=== PATIENT | male | born 1960 | race Caucasian/White ===

== ENCOUNTER 2017-04-28 17:42 | Inpatient (IN) | payer BC, OTHER ==
[2017-04-28] MEDS: ONDANSETRON 4MG/2ML VIAL (J2405) IV (18:14)
[2017-04-28] MEDS: MORPHINE 4 MG/ML 1ML VIAL (J2270) IV (18:15)
[2017-04-28 19:18] LABS: INR 1.06; PROTHROMBIN TIME 13.9 SECONDS (12.4-14.5)
[2017-04-28] MEDS ORDERED: ONDANSETRON 4MG/2ML VIAL (J2405) IV (20:00)
[2017-04-28] MEDS ORDERED: GLUCAGON FOR INJ 1 MG VIAL (J1610) SC (20:00)
[2017-04-28] MEDS ORDERED: GLUCOSE 4 GM CHEW TABLET PO (20:00)
[2017-04-28] MEDS ORDERED: BISACODYL 10 MG SUPP PR (20:00)
[2017-04-28] MEDS ORDERED: DEXTROSE 50% 50 ML SYRINGE IV (20:00)
[2017-04-28] MEDS: HumaLOG INSULIN (NovoLOG) PER UNIT SC (21:00)
[2017-04-28 21:52] LABS: ANION GAP 7 MEQ/L (8-16); BLOOD UREA NITROGEN 23 MG/DL (7-18); CALCIUM LEVEL 8.4 MG/DL (8.5-10.1); CARBON DIOXIDE LEVEL 27 MEQ/L (21-32); CHLORIDE LEVEL 107 MEQ/L (98-107); CREATININE FOR GFR 1.23 MG/DL (0.70-1.30); GLOMERULAR FILTRATION RATE > 60.0 (>56); GLUCOSE, FASTING 114 MG/DL (70-100); POTASSIUM SERUM 4.2 MEQ/L (3.5-5.1); SODIUM LEVEL 141 MEQ/L (136-145)
[2017-04-28 21:57] LABS: HEMATOCRIT 35.6 % (42.0-52.0); HEMOGLOBIN 11.4 g/dl (14.0-18.0); MEAN CORPUSCULAR VOLUME 87.5 fl (80.0-96.0); PLATELET COUNT, AUTOMATED 138 10^3/uL (150-450); RED BLOOD COUNT 4.07 10^6/uL (4.30-6.10); RED CELL DISTRIBUTION WIDTH 14.9 % (11.5-14.5); WHITE BLOOD COUNT 4.3 10^3/uL (4.0-10.0)
[2017-04-28] MEDS: NS 1,000 ML IV (22:15)
[2017-04-28] MEDS: ACETAMINOPHEN TAB 650MG DOSE (2X325MG) PO (22:36)
[2017-04-29 06:07] LABS: HEMATOCRIT 32.3 % (42.0-52.0); HEMOGLOBIN 10.3 g/dl (14.0-18.0); MEAN CORPUSCULAR HEMOGLOBIN 27.8 pg (27.0-33.0); MEAN CORPUSCULAR HGB CONC 31.9 g/dl (32.0-36.5); MEAN CORPUSCULAR VOLUME 87.3 fl (80.0-96.0); PLATELET COUNT, AUTOMATED 112 10^3/uL (150-450); RED CELL DISTRIBUTION WIDTH 15.2 % (11.5-14.5); WHITE BLOOD COUNT 2.9 10^3/uL (4.0-10.0)
[2017-04-29 06:30] LABS: ANION GAP 5 MEQ/L (8-16); BLOOD UREA NITROGEN 26 MG/DL (7-18); CALCIUM LEVEL 8.2 MG/DL (8.5-10.1); CARBON DIOXIDE LEVEL 29 MEQ/L (21-32); CHLORIDE LEVEL 106 MEQ/L (98-107); CREATININE FOR GFR 1.11 MG/DL (0.70-1.30); GLOMERULAR FILTRATION RATE > 60.0 (>56); GLUCOSE, FASTING 119 MG/DL (70-100); POTASSIUM SERUM 4.4 MEQ/L (3.5-5.1); SODIUM LEVEL 140 MEQ/L (136-145)
[2017-04-29] MEDS: HumaLOG INSULIN (NovoLOG) PER UNIT SC ×4 (07:30→20:34)
[2017-04-29] MEDS: CitaloPRAM (CeleXA) 20 MG TAB PO (08:37)
[2017-04-29] MEDS: OMEPRAZOLE 20 MG CAP PO (08:38)
[2017-04-29] MEDS: METOPROLOL SUCC (TopROL XL) 100MG *XL* TAB PO (08:38)
[2017-04-29] MEDS: PREGABALIN 75 MG CAP(LYRICA) PO (08:38)
[2017-04-29] MEDS: NS 1,000 ML IV (11:16)
[2017-04-29] MEDS: ceFAZolin 1GM INJ (J0690 PER 500MG) As Ordered (13:23)
[2017-04-29] MEDS ORDERED: MIDAZOLAM INJ 2 MG/2 ML VIAL (J2250) As Ordered (14:14)
[2017-04-29] MEDS ORDERED: fentaNYL 100 MCG/2 ML INJECTION (J3010) As Ordered (14:14)
[2017-04-29] MEDS ORDERED: PROPOFOL 200 MG/20 ML VIAL As Ordered ×4 (14:14→15:11)
[2017-04-29] MEDS: ceFAZolin 2 GM/D5W 50 ML IV BAG (J0690 PER 500MG) As Ordered (14:17)
[2017-04-29] MEDS ORDERED: ePHEDrine SULFATE 25 MG/5 ML(5MG/ML) SYRINGE As Ordered (14:27)
[2017-04-29] MEDS: LR 1,000 ML IV ×2 (16:15→18:34)
[2017-04-29] MEDS ORDERED: fentaNYL 100 MCG/2 ML INJECTION (J3010) IV (16:15)
[2017-04-29] MEDS ORDERED: MORPHINE 1MG/ML IN 0.9% NACL 100ML IV BAG As Ordered (16:17)
[2017-04-29] MEDS: MORPHINE 1MG/ML IN 0.9% NACL 100ML IV BAG IV (16:30)
[2017-04-29] MEDS ORDERED: NALBUPHINE HCL 10 MG/ML AMP (J2300) IV (16:45)
[2017-04-29] MEDS ORDERED: FLEET ENEMA PR (16:45)
[2017-04-29] MEDS ORDERED: diphenhydrAMINE INJ 50MG/ML VIAL (J1200) IV (16:45)
[2017-04-29] MEDS ORDERED: ONDANSETRON 4MG/2ML VIAL (J2405) IV ×2 (16:45)
[2017-04-29] MEDS ORDERED: EPIDURAL/PCA KEYS XX (16:45)
[2017-04-29] MEDS ORDERED: NALOXONE INJ 0.4 MG/1 ML VIAL (J2310) IV (16:45)
[2017-04-29] MEDS ORDERED: DEXTROSE 50% 50 ML SYRINGE IV (17:00)
[2017-04-29] MEDS ORDERED: GLUCOSE 4 GM CHEW TABLET PO (17:00)
[2017-04-29] MEDS ORDERED: GLUCAGON FOR INJ 1 MG VIAL (J1610) SC (17:00)
[2017-04-29 18:22] LABS: BEDSIDE GLUCOSE 133 MG/DL (70-105)
[2017-04-29 20:34] LABS: BEDSIDE GLUCOSE 139 MG/DL (70-105)
[2017-04-29] MEDS: WARFARIN SOD 5 MG TAB PO (21:12)
[2017-04-29] MEDS: ACETAMINOPHEN TAB 650MG DOSE (2X325MG) PO (22:02)
[2017-04-30 05:51] LABS: HEMATOCRIT 28.2 % (42.0-52.0); MEAN CORPUSCULAR HEMOGLOBIN 27.3 pg (27.0-33.0); MEAN CORPUSCULAR HGB CONC 31.9 g/dl (32.0-36.5); MEAN CORPUSCULAR VOLUME 85.5 fl (80.0-96.0); PLATELET COUNT, AUTOMATED 113 10^3/uL (150-450); RED CELL DISTRIBUTION WIDTH 15.3 % (11.5-14.5); WHITE BLOOD COUNT 4.5 10^3/uL (4.0-10.0)
[2017-04-30] MEDS: LR 1,000 ML IV (06:05)
[2017-04-30 06:15] LABS: ANION GAP 8 MEQ/L (8-16); BLOOD UREA NITROGEN 24 MG/DL (7-18); CALCIUM LEVEL 7.6 MG/DL (8.5-10.1); CARBON DIOXIDE LEVEL 25 MEQ/L (21-32); CHLORIDE LEVEL 103 MEQ/L (98-107); GLOMERULAR FILTRATION RATE > 60.0 (>56); GLUCOSE, FASTING 126 MG/DL (70-100); MAGNESIUM LEVEL 1.7 MG/DL (1.8-2.4); POTASSIUM SERUM 4.2 MEQ/L (3.5-5.1); SODIUM LEVEL 136 MEQ/L (136-145)
[2017-04-30] MEDS ORDERED: ONDANSETRON 4 MG TAB (S0181) PO (06:45)
[2017-04-30 08:07] LABS: BEDSIDE GLUCOSE 162 MG/DL (70-105)
[2017-04-30] MEDS: HumaLOG INSULIN (NovoLOG) PER UNIT SC ×4 (08:31→20:41)
[2017-04-30] MEDS: MAGNESIUM OXIDE 400 MG TAB (MAG-OX) PO (08:31)
[2017-04-30] MEDS: CitaloPRAM (CeleXA) 20 MG TAB PO (08:32)
[2017-04-30] MEDS: METOPROLOL SUCC (TopROL XL) 100MG *XL* TAB PO (08:32)
[2017-04-30] MEDS: PREGABALIN 75 MG CAP(LYRICA) PO (08:32)
[2017-04-30] MEDS: SENOKOT S TAB PO ×2 (08:32→20:39)
[2017-04-30] MEDS: MOM 30ML SUSPENSION UDC PO (08:32)
[2017-04-30] MEDS: MIRALAX *UNIT DOSE* 17GM PACKET PO (08:33)
[2017-04-30] MEDS: PERCOCET 5MG/325MG TAB PO ×2 (08:33→13:49)
[2017-04-30 11:21] LABS: BEDSIDE GLUCOSE 140 MG/DL (70-105)
[2017-04-30 16:47] LABS: BEDSIDE GLUCOSE 129 MG/DL (70-105)
[2017-04-30] MEDS: WARFARIN SOD 5 MG TAB PO (16:51)
[2017-05-01] MEDS: PERCOCET 5MG/325MG TAB PO ×4 (00:11→19:49)
[2017-05-01 06:34] LABS: HEMATOCRIT 25.8 % (42.0-52.0); HEMOGLOBIN 8.5 g/dl (14.0-18.0); MEAN CORPUSCULAR HEMOGLOBIN 28.2 pg (27.0-33.0); MEAN CORPUSCULAR HGB CONC 32.9 g/dl (32.0-36.5); MEAN CORPUSCULAR VOLUME 85.7 fl (80.0-96.0); PLATELET COUNT, AUTOMATED 102 10^3/uL (150-450); RED BLOOD COUNT 3.01 10^6/uL (4.30-6.10); RED CELL DISTRIBUTION WIDTH 15.3 % (11.5-14.5)
[2017-05-01 06:37] LABS: INR 1.21; PROTHROMBIN TIME 15.6 SECONDS (12.4-14.5)
[2017-05-01 06:43] LABS: ANION GAP 8 MEQ/L (8-16); BLOOD UREA NITROGEN 22 MG/DL (7-18); CALCIUM LEVEL 8.5 MG/DL (8.5-10.1); CARBON DIOXIDE LEVEL 27 MEQ/L (21-32); CHLORIDE LEVEL 101 MEQ/L (98-107); CREATININE FOR GFR 0.93 MG/DL (0.70-1.30); GLOMERULAR FILTRATION RATE > 60.0 (>56); GLUCOSE, FASTING 110 MG/DL (70-100); MAGNESIUM LEVEL 1.9 MG/DL (1.8-2.4); SODIUM LEVEL 136 MEQ/L (136-145)
[2017-05-01] MEDS: MOM 30ML SUSPENSION UDC PO (08:35)
[2017-05-01] MEDS: SENOKOT S TAB PO ×2 (08:35→19:48)
[2017-05-01] MEDS: MIRALAX *UNIT DOSE* 17GM PACKET PO (08:35)
[2017-05-01] MEDS: PREGABALIN 75 MG CAP(LYRICA) PO (08:36)
[2017-05-01] MEDS: CitaloPRAM (CeleXA) 20 MG TAB PO (08:36)
[2017-05-01] MEDS: METOPROLOL SUCC (TopROL XL) 100MG *XL* TAB PO (08:37)
[2017-05-01] MEDS: HumaLOG INSULIN (NovoLOG) PER UNIT SC ×4 (08:40→20:01)
[2017-05-01] MEDS: WARFARIN SOD 7.5 MG TAB PO (17:37)
[2017-05-01] MEDS: BISACODYL 10 MG SUPP PR (19:49)
[2017-05-02] MEDS: PERCOCET 5MG/325MG TAB PO ×2 (04:39→12:21)
[2017-05-02 06:22] LABS: HEMATOCRIT 25.6 % (42.0-52.0); HEMOGLOBIN 8.4 g/dl (14.0-18.0); MEAN CORPUSCULAR HEMOGLOBIN 28.1 pg (27.0-33.0); MEAN CORPUSCULAR HGB CONC 32.8 g/dl (32.0-36.5); MEAN CORPUSCULAR VOLUME 85.6 fl (80.0-96.0); PLATELET COUNT, AUTOMATED 118 10^3/uL (150-450); RED BLOOD COUNT 2.99 10^6/uL (4.30-6.10); RED CELL DISTRIBUTION WIDTH 15.2 % (11.5-14.5); WHITE BLOOD COUNT 2.7 10^3/uL (4.0-10.0)
[2017-05-02 06:30] LABS: INR 1.16
[2017-05-02 06:46] LABS: ANION GAP 7 MEQ/L (8-16); BLOOD UREA NITROGEN 23 MG/DL (7-18); CALCIUM LEVEL 8.2 MG/DL (8.5-10.1); CARBON DIOXIDE LEVEL 28 MEQ/L (21-32); CHLORIDE LEVEL 103 MEQ/L (98-107); GLOMERULAR FILTRATION RATE > 60.0 (>56); GLUCOSE, FASTING 124 MG/DL (70-100); MAGNESIUM LEVEL 2.3 MG/DL (1.8-2.4); POTASSIUM SERUM 4.3 MEQ/L (3.5-5.1); SODIUM LEVEL 138 MEQ/L (136-145)
[2017-05-02] MEDS: HumaLOG INSULIN (NovoLOG) PER UNIT SC ×2 (08:00→12:16)
[2017-05-02] MEDS: ENOXAPARIN 40 MG/0.4 ML SYRINGE (J1650) SC (08:00)
[2017-05-02] MEDS: MIRALAX *UNIT DOSE* 17GM PACKET PO (09:44)
[2017-05-02] MEDS: MOM 30ML SUSPENSION UDC PO (09:44)
[2017-05-02] MEDS: METOPROLOL SUCC (TopROL XL) 100MG *XL* TAB PO (09:45)
[2017-05-02] MEDS: PREGABALIN 75 MG CAP(LYRICA) PO (09:45)
[2017-05-02] MEDS: SENOKOT S TAB PO (09:45)
[2017-05-02] MEDS: CitaloPRAM (CeleXA) 20 MG TAB PO (09:45)
[2017-05-02] MEDS ORDERED: WARFARIN SOD 7.5 MG TAB PO (17:00)
[2017-05-03 12:04] LABS: BEDSIDE GLUCOSE 126 MG/DL (70-105)
[2017-05-03 12:05] LABS: BEDSIDE GLUCOSE 148 MG/DL (70-105)
[2017-05-03 12:05] LABS: BEDSIDE GLUCOSE 156 MG/DL (70-105)
[2017-05-03 12:05] LABS: BEDSIDE GLUCOSE 99 MG/DL (70-105)
[2017-05-03 12:05] LABS: BEDSIDE GLUCOSE 136 MG/DL (70-105)
[2017-05-03 12:05] LABS: BEDSIDE GLUCOSE 200 MG/DL (70-105)
[2017-05-03 12:05] LABS: BEDSIDE GLUCOSE 159 MG/DL (70-105)
== END 2017-05-02 13:05 | disposition home health service (06) | DRG 309 ==
LOC: M MSPAV 04-29 17:29 → M MS5PR 04-30 17:03 → M ED 17:42 → M ED INP 19:46 → M MS5PR 21:46
PROC: 0QS906Z Reposition Left Femoral Shaft with Intramedullary Internal Fixation Device, Open Approach (ICD-10-PCS; principal; 2017-04-29 08:43)
DX: M97.12XA Periprosthetic fracture around internal prosthetic left knee joint, initial encounter (principal); G62.9 Polyneuropathy, unspecified; I10 Essential (primary) hypertension; E11.9 Type 2 diabetes mellitus without complications; Z79.82 Long term (current) use of aspirin; Z79.899 Other long term (current) drug therapy; K21.9 Gastro-esophageal reflux disease without esophagitis; F32.9 Major depressive disorder, single episode, unspecified; R50.9 Fever, unspecified; R00.0 Tachycardia, unspecified

== ENCOUNTER → 2019-08-29 | Outpatient (CLI) | payer BC ==
[~2019-08-29] MED LIST: ACET65TA OR; ASPI81TA86 PO; CITA20TA6 PO; COUM1TAB18 OR; COUM2.5T17 PO; INVO300T PO; LYRI75CA PO; METF500T13 PO; METO1TAB33 PO; OMEPRAZOLE PO; PERC5TAB12 PO; PERC5TAB8 OR; PRIL40CA OR; VITA-113 PO; ibuprofen PO; naproxen PO
--- NOTE | 2019-08-29 23:24 | REP ---
BILATERAL EXAM: REASON: Atherosclerotic disease. RIGHT: Right side ankle-brachial index noncompressible, unobtainable. ARTERY PEAK SYSTOLIC VELOCITY PHASICITY [employer] 58.7 cm/s Triphasic Profunda 34.1 cm/s Triphasic SFA proximal 65.3 cm/s Triphasic SFA mid 49.6 cm/s Triphasic SFA distal 47.9 cm/s Triphasic Popliteal 38.5 cm/s Triphasic EBEN proximal 57.0 cm/s Triphasic Tibioperoneal trunk 45.7 cm/s Triphasic CREAMERY WORKER proximal 75.2 cm/s Triphasic CREAMERY WORKER distal 75.2 cm/s Triphasic EBEN distal 74.6 cm/s Triphasic LEFT: Ankle-brachial index 1.6. ARTERY PEAK SYSTOLIC VELOCITY PHASICITY [employer] 50.2 cm/s Triphasic Profunda 17.3 cm/s Triphasic SFA proximal 57.1 cm/s Triphasic SFA mid 48.5 cm/s Triphasic SFA distal 43.1 cm/s Triphasic Popliteal 40.9 cm/s Triphasic EBEN proximal 40.9 cm/s Triphasic Tibioperoneal trunk 44.2 cm/s Triphasic CREAMERY WORKER proximal 65.5 cm/s Monophasic CREAMERY WORKER distal 121.3 cm/s Monophasic EBEN distal 32.7 cm/s Monophasic On the right, mild to moderate plaque was seen without evidence of a stenosis from the [employer] to the ankle. On the left, mild to moderate plaque was also seen. Electronically Signed by Syd Aldridge DO 08/30/2019 12:37 P
== END ==
LOC: M RAD 13:00
PROVIDERS: ATTEND Physician Assistant
DX: I70.203 Unspecified atherosclerosis of native arteries of extremities, bilateral legs (principal)

== ENCOUNTER → 2019-09-05 | Outpatient (CLI) | payer BC ==
[2019-09-05 15:31] LABS: BLOOD UREA NITROGEN 19 MG/DL (7-18); CALCIUM LEVEL 8.8 MG/DL (8.8-10.2); CARBON DIOXIDE LEVEL 27 MEQ/L (21-32); CHLORIDE LEVEL 107 MEQ/L (98-107); CREATININE FOR GFR 1.08 MG/DL (0.70-1.30); GLOMERULAR FILTRATION RATE > 60.0 (>49); GLUCOSE, FASTING 104 MG/DL (70-100); POTASSIUM SERUM 4.5 MEQ/L (3.5-5.1); SODIUM LEVEL 140 MEQ/L (136-145)
[2019-09-05 15:33] LABS: HEMATOCRIT 42.5 % (42.0-52.0); HEMOGLOBIN 13.5 g/dl (13.5-17.5); MEAN CORPUSCULAR HEMOGLOBIN 29.5 pg (27.0-33.0); MEAN CORPUSCULAR HGB CONC 31.8 g/dl (32.0-36.5); MEAN CORPUSCULAR VOLUME 92.8 fl (80.0-96.0); PLATELET COUNT, AUTOMATED 172 10^3/uL (150-450); RED BLOOD COUNT 4.58 10^6/uL (4.30-6.10); WHITE BLOOD COUNT 4.7 10^3/uL (4.0-10.0)
== END ==
LOC: M LAB 12:13
PROVIDERS: ATTEND Physician Assistant
DX: I70.203 Unspecified atherosclerosis of native arteries of extremities, bilateral legs (principal); I87.2 Venous insufficiency (chronic) (peripheral); I70.245 Atherosclerosis of native arteries of left leg with ulceration of other part of foot

== ENCOUNTER → 2020-02-05 | Outpatient (REF) | payer OTHER ==
[2020-02-05 12:41] LABS: BLOOD UREA NITROGEN 21 MG/DL (7-18); CALCIUM LEVEL 8.8 MG/DL (8.8-10.2); CARBON DIOXIDE LEVEL 33 MEQ/L (21-32); CHLORIDE LEVEL 103 MEQ/L (98-107); CREATININE FOR GFR 1.14 MG/DL (0.70-1.30); GLOMERULAR FILTRATION RATE > 60.0 (>49); GLUCOSE, FASTING 123 MG/DL (70-100); POTASSIUM SERUM 4.2 MEQ/L (3.5-5.1); SODIUM LEVEL 139 MEQ/L (136-145)
[2020-02-05 13:03] LABS: HEMOGLOBIN A1c 6.4 %
== END ==
LOC: M SFHCCLAY 08:25
PROVIDERS: ATTEND Family Medicine
DX: E11.9 Type 2 diabetes mellitus without complications (principal)

== ENCOUNTER → 2020-04-16 | Outpatient (CLI) | payer OTHER ==
--- NOTE | 2020-04-16 15:32 | REP ---
INDICATION: ACUTE PAIN OF LEFT SHOULDER COMPARISON: None. TECHNIQUE: Internal rotation, external rotation, and Y view. FINDINGS: Relatively generalized age-related changes are appreciated including subtle arthritic change at the acromioclavicular joint. The subacromial space is normal. The glenohumeral joint appears normal. No periarticular loose bodies or calcifications identified. No obvious acute fracture or dislocation. IMPRESSION: Generalized age-related changes. No acute fracture or dislocation appreciated. <Electronically signed by Kp David > 04/16/20 152
== END ==
LOC: M CLY 15:12
PROVIDERS: ATTEND Family Medicine
DX: M25.512 Pain in left shoulder (principal)
CPT/HCPCS: 73030; G0463

== ENCOUNTER → 2020-11-04 | Outpatient (CLI) | payer OTHER | LOC: M LABSMTC 11:04 | PROVIDERS: ATTEND Pediatrics | DX: Z20.828 Contact with and (suspected) exposure to other viral communicable diseases (principal); Z11.59 Encounter for screening for other viral diseases | CPT/HCPCS: C9803; U0003 ==

== ENCOUNTER → 2021-01-04 | Outpatient (CLI) | payer OTHER ==
[~2021-01-04] MED LIST changes: +AMIO200T3; +ATOR40TA75; +CITA40TA4; +D31000TA2 PO; +ELIQ5TAB; +FURO40TA2 PO; +OMEP-221; +SPIR-10 PO
== END ==
LOC: M LABSMTC 09:22
PROVIDERS: ATTEND Anesthesiology
DX: Z01.812 Encounter for preprocedural laboratory examination (principal); Z20.822 Contact with and (suspected) exposure to COVID-19

== ENCOUNTER 2021-01-10 09:13 | Outpatient (CLI) | payer OTHER ==
[~2021-01-10] VITALS: Ht 188 cm; Wt 112.7 kg
[~2021-01-10 09:13] MED LIST changes: +ALBUTEROL 90 MCG/ACT 8GM HFA INHALER INH PRN; +ALBUTEROL SULFATE 2.5 MG/0.5 ML INH NEB SOLN INH PRN; -AMIO200T3; +AMIO200T49; -CITA40TA4; +CITA40TA7; +EPINEPHrine INJ 1 MG/ML 1ML AMP IM PRN; +NS 1,000 ML IV SCH; -OMEP-221; +OMEP40CA5; +diphenhydrAMINE 50MG/ML VIAL (J1200) IV PRN; +methylPREDNISolone 125MG 2ML VIAL IV PRN
[2021-01-10 09:46] VITALS: BP 132/79
[2021-01-10] MEDS ORDERED: CASIRIVIMAB (REGN10933) 600 MG, IMDEVIMAB (REGN10987) 600 MG in NS 250 ML IV ONE (10:00)
[2021-01-10 10:16] VITALS: BP 104/64
[2021-01-10 10:46] VITALS: BP 112/70
[2021-01-10 11:46] VITALS: BP 126/73
== END 2021-01-10 11:46 | disposition home or self-care (01) ==
LOC: M OPCLI4PR 09:13
PROVIDERS: ATTEND Family Medicine
DX: U07.1 COVID-19 (principal)

== ENCOUNTER → 2021-01-15 | Outpatient (CLI) | payer OTHER ==
[~2021-01-15] MED LIST changes: -ALBUTEROL 90 MCG/ACT 8GM HFA INHALER INH PRN; -ALBUTEROL SULFATE 2.5 MG/0.5 ML INH NEB SOLN INH PRN; -EPINEPHrine INJ 1 MG/ML 1ML AMP IM PRN; -NS 1,000 ML IV SCH; -diphenhydrAMINE 50MG/ML VIAL (J1200) IV PRN; -methylPREDNISolone 125MG 2ML VIAL IV PRN
== END ==
LOC: M LABSMTC 11:08
PROVIDERS: ATTEND Anesthesiology
DX: Z01.812 Encounter for preprocedural laboratory examination (principal); Z20.822 Contact with and (suspected) exposure to COVID-19

== ENCOUNTER → 2021-01-23 | Outpatient (CLI) | payer OTHER ==
[~2021-01-23] MED LIST changes: +AMIO200T3; -AMIO200T49; +CITA40TA4; -CITA40TA7; +OMEP-221; -OMEP40CA5
--- NOTE | 2021-01-27 15:25 | SLEEPCENT ---
DATE: 01/23/2021 ORDERED BY: ALEXX Jin Nocturnal polysomnography was performed for evaluation of sleep physiology in this patient with a history of excessive somnolence and nonrestorative sleep. Seven hours and 7 minutes of data were reviewed. There were 336.5 minutes of sleep identified. Sleep latency was mildly prolonged at 19.5 minutes. REM latency was more so prolonged at 319 minutes. Sleep architecture showed fragmentation and poor progression. Overall sleep efficiency was 79.5%. The electrocardiogram showed a sinus rhythm with an average heart rate of 62 beats per minute. EEG showed normal waveforms for wake and sleep. There were 521 respiratory events identified of 10 seconds in duration or greater for an apnea-hypopnea index of 92.9. The events were obstructive, not exclusive to sleep stage nor position. Arousals from respiratory events occurred 23.7 times per hour, and oxygen desaturations were seen into the low 80s. There was significant activity in the limb leads but limb movement arousal index was only 0.4. IMPRESSIONS: Obstructive sleep apnea syndrome, severe (G47.33). Apnea-hypopnea index 92.9. RECOMMENDATION: The patient should be encouraged to return to [facility] at their earliest convenience for pressure therapy. In the interim, alcohol and sedative avoidance should be practiced and caution exercised during the operation of motor vehicles. cc: JOLLY DIXON MD
== END ==
LOC: M SLEEP 20:00
PROVIDERS: ATTEND Nurse Practitioner Family
DX: G47.33 Obstructive sleep apnea (adult) (pediatric) (principal)

== ENCOUNTER → 2021-02-14 | Outpatient (CLI) | payer OTHER ==
--- NOTE | 2021-02-17 20:56 | SLEEPCENT ---
DATE: 02/14/2021 ORDERED BY: ALEXX Jin Nocturnal polysomnography was performed for the titration of pressure therapy in this patient with severe obstructive sleep apnea syndrome, apnea-hypopnea index of 92.9. Seven hours and 55 minutes of data were reviewed. There were 364 minutes of sleep identified. Sleep latency was normal at 10.5 minutes. REM sleep was delayed at 231.5 minutes. Sleep architecture improved on optimal pressure therapy and there were two REM cycles noted. Overall sleep efficiency was 79%. The electrocardiogram showed a sinus rhythm with an average heart rate of 60 beats per minute. EEG showed normal waveforms for wake and sleep. Respiratory events were fully palliated with CPAP at a pressure of 15. There was persistence of limb activity in the EMG leads. Limb movement arousal index was only 7.6. IMPRESSIONS: Obstructive sleep apnea syndrome (G47.33). RECOMMENDATION: Nightly use of pressure therapy 15 cm of water. cc: JOLLY DIXON MD
== END ==
LOC: M SLEEP 20:00
PROVIDERS: ATTEND Physician Assistant
DX: G47.33 Obstructive sleep apnea (adult) (pediatric) (principal)

== ENCOUNTER → 2021-06-23 | Outpatient (REF) | payer OTHER ==
[~2021-06-23] MED LIST changes: -AMIO200T3; +AMIO200T49; -CITA40TA4; +CITA40TA7; -D31000TA2 PO; -OMEP-221; +OMEP40CA5; +VITA100093 PO
[2021-06-23 12:12] LABS: BASO % 0.4 % (0.0-1.0); EOS # 0.1 10^3/uL (0.0-0.5); EOS % 1.9 % (0.0-3.0); HEMATOCRIT 42.8 % (42.0-52.0); HEMOGLOBIN 13.8 g/dl (13.5-17.5); LYMPH # 0.8 10^3/uL (1.5-5.0); LYMPH % 13.2 % (24.0-44.0); MEAN CORPUSCULAR HEMOGLOBIN 32.3 pg (27.0-33.0); MEAN CORPUSCULAR HGB CONC 32.2 g/dl (32.0-36.5); MEAN CORPUSCULAR VOLUME 100.2 fl (80.0-96.0); MONO # 0.6 10^3/uL (0.0-0.8); MONO % 10.8 % (2.0-8.0); NEUTROPHILS # 4.2 10^3/uL (1.5-8.5); NEUTROPHILS % 73.3 % (36.0-66.0); PLATELET COUNT, AUTOMATED 189 10^3/uL (150-450); RED BLOOD COUNT 4.27 10^6/uL (4.30-6.10); WHITE BLOOD COUNT 5.7 10^3/uL (4.0-10.0)
[2021-06-23 12:40] LABS: ALBUMIN 3.6 GM/DL (3.2-5.2); ALT/SGPT 56 U/L (12-78); BILIRUBIN,TOTAL 0.8 MG/DL (0.2-1.0); BLOOD UREA NITROGEN 23 MG/DL (7-18); CALCIUM LEVEL 8.8 MG/DL (8.8-10.2); CARBON DIOXIDE LEVEL 28 MEQ/L (21-32); CHLORIDE LEVEL 107 MEQ/L (98-107); CREATININE FOR GFR 1.26 MG/DL (0.70-1.30); FREE T4 1.23 NG/DL (0.76-1.46); GLOMERULAR FILTRATION RATE > 60.0 (>49); GLUCOSE, FASTING 136 MG/DL (70-100); POTASSIUM SERUM 4.4 MEQ/L (3.5-5.1); SODIUM LEVEL 139 MEQ/L (136-145); TOTAL PROTEIN 7.1 GM/DL (6.4-8.2)
[2021-06-23 12:43] LABS: CREATININE, URINE 75.2 MG/DL; MALB URINE SIEMENS < 5.0 MG/L; MAU/CREAT RATIO 6.6 MCG/MG (0.0-30.0)
[2021-06-23 13:58] LABS: HEMOGLOBIN A1c 6.4 %
== END ==
LOC: M SFHCCLAY 08:31
PROVIDERS: ATTEND Nurse Practitioner Family
DX: E11.40 Type 2 diabetes mellitus with diabetic neuropathy, unspecified (principal); I83.93 Asymptomatic varicose veins of bilateral lower extremities; I11.0 Hypertensive heart disease with heart failure; Z23 Encounter for immunization; E78.5 Hyperlipidemia, unspecified; I48.91 Unspecified atrial fibrillation; E11.22 Type 2 diabetes mellitus with diabetic chronic kidney disease; N18.30 Chronic kidney disease, stage 3 unspecified
CPT/HCPCS: 73630; 80053; 82043; 83036; 84439; 84443; 85025; G0103

== ENCOUNTER → 2021-06-23 | Outpatient (CLI) | payer OTHER | LOC: M CLY 08:49 | PROVIDERS: ATTEND Nurse Practitioner Family | DX: M79.672 Pain in left foot (principal) ==

== ENCOUNTER → 2022-01-09 | Outpatient (CLI) | payer OTHER | LOC: M SLEEP 20:00 | PROVIDERS: ATTEND Nurse Practitioner Family | DX: G47.33 Obstructive sleep apnea (adult) (pediatric) (principal); G47.61 Periodic limb movement disorder ==

== ENCOUNTER → 2022-03-16 | Outpatient (REF) | payer OTHER ==
[2022-03-16 18:54] LABS: CREATININE, URINE 145.6 MG/DL
[2022-03-16 18:55] LABS: MAU/CREAT RATIO 2.7 MCG/MG (0.0-30.0)
== END ==
LOC: M LAB REF 16:42
PROVIDERS: ATTEND Internal Medicine Nephrology
DX: E11.21 Type 2 diabetes mellitus with diabetic nephropathy (principal)

== ENCOUNTER → 2022-05-01 | Outpatient (CLI) | payer OTHER | LOC: M RAD 08:49 | PROVIDERS: ATTEND Orthopaedic Surgery | DX: T84.033A Mechanical loosening of internal left knee prosthetic joint, initial encounter (principal); Z96.652 Presence of left artificial knee joint | CPT/HCPCS: 78315; A9503 ==

== ENCOUNTER 2024-02-14 07:10 | Day surgery (SDC) | payer OTHER ==
[~2024-02-14] VITALS: Ht 185.4 cm; Wt 124.3 kg
[~2024-02-14 07:10] MED LIST changes: +ATOR40TA75 PO; +FINE10TA PO; +GABA-1172 PO; +INVO100T PO; +IRON65TA2 PO; +LOSA50TA28 PO; +LR 1,000 ML IV SCH; +MIDAZOLAM INJ 2MG/2ML VIAL As Ordered ONE; +OMEP40CA4 PO; +fentaNYL 100 MCG/2 ML INJECTION As Ordered ONE
[2024-02-14] MEDS: FLURBIPROFEN 0.03% OPHTH SOLN 2.5 ML OS SCH (07:53)
[2024-02-14] MEDS: PHENYLEPHRINE 2.5% OPHTH SOL 2ML OS SCH (07:53)
[2024-02-14] MEDS: CYCLOPENTOLATE 1% OPHTH SOLN 2ML BTL OS SCH (07:53)
[2024-02-14] MEDS: TETRACAINE 0.5% OPHTH SOLN 4ML OS SCH (07:54)
[2024-02-14] MEDS: LIDOCAINE 1% SDV 5ML VIAL As Ordered ONE (09:35)
[2024-02-14] MEDS: CEFUROXIME 1MG/0.1ML INTRACAMERAL INJ As Ordered ONE (09:45)
[2024-02-14 09:58] VITALS: BP 114/64; TEMP 97.3; O2SAT 95
== END 2024-02-14 10:12 | disposition home or self-care (01) ==
LOC: M SDC 07:10
PROVIDERS: ATTEND Ophthalmology
DX: H25.812 Combined forms of age-related cataract, left eye (principal); I10 Essential (primary) hypertension; I48.91 Unspecified atrial fibrillation; E78.5 Hyperlipidemia, unspecified; E11.9 Type 2 diabetes mellitus without complications; G47.33 Obstructive sleep apnea (adult) (pediatric); Z79.01 Long term (current) use of anticoagulants; Z79.899 Other long term (current) drug therapy
CPT/HCPCS: 66984; J0697; J2250; J3010; V2632

== ENCOUNTER 2024-12-08 10:33 | Inpatient (IN) | payer OTHER ==
[~2024-12-08] VITALS: Ht 185.4 cm; Wt 113.8 kg
[~2024-12-08 10:33] MED LIST changes: -AMIO200T49; +AMIO200T54; -LR 1,000 ML IV SCH; -MIDAZOLAM INJ 2MG/2ML VIAL As Ordered ONE; -fentaNYL 100 MCG/2 ML INJECTION As Ordered ONE
[2024-12-08] MEDS ORDERED: ONDANSETRON 4MG ORAL DISINTEGRATING TAB PO PRN (13:20)
[2024-12-08] MEDS ORDERED: DEXTROSE 50% 50 ML SYRINGE IV PRN (13:20)
[2024-12-08] MEDS ORDERED: BISACODYL 5 MG TAB PO PRN (13:20)
[2024-12-08] MEDS ORDERED: MIRALAX *UNIT DOSE* 17 GM PACKET PO PRN (13:20)
[2024-12-08] MEDS ORDERED: GLUCOSE 4 GM CHEW PO PRN (13:20)
[2024-12-08] MEDS ORDERED: FLEET ENEMA PR PRN (13:20)
[2024-12-08] MEDS ORDERED: ACETAMINOPHEN 500 MG TAB PO PRN (13:20)
[2024-12-08] MEDS ORDERED: POLYVINYL ALCOHOL OPHTH SOLN 15ML (LIQUITEARS) OU PRN (13:20)
[2024-12-08] MEDS ORDERED: GLUCAGON INJ 1 MG VIAL SC PRN (13:20)
[2024-12-08] MEDS ORDERED: BISACODYL 10 MG SUPP PR PRN (13:20)
[2024-12-08 14:00] VITALS: BP 140/60; TEMP 97; O2SAT 98
[2024-12-08] MEDS ORDERED: MAALOX 30 ML SUSP *UDC PO PRN (14:10)
[2024-12-08 14:30] VITALS: BP 140/60; TEMP 97; O2SAT 98
[2024-12-08] MEDS: REMEDY PHYTOPLEX Z-GUARD PASTE 113GM TUBE (FROM STOREROOM PRODUCT) TOP SCH (16:00)
[2024-12-08] MEDS ORDERED: CHOL25CA2 PO (16:47)
[2024-12-08] MEDS ORDERED: PHOS1TAB3 PO (16:47)
[2024-12-08] MEDS ORDERED: FERR32TA PO (16:47)
[2024-12-08] MEDS ORDERED: AMIO400T14 PO (16:47)
[2024-12-08] MEDS ORDERED: LOPR1TAB7 PO (16:47)
[2024-12-08] MEDS ORDERED: VANC125C13 PO (16:47)
[2024-12-08] MEDS ORDERED: ACET-1593 PO (16:47)
[2024-12-08] MEDS ORDERED: FURO40TA2 PO (16:47)
[2024-12-08] MEDS ORDERED: REFR0.5D8 OU (16:47)
[2024-12-08] MEDS ORDERED: ELIQ5TAB PO (16:47)
[2024-12-08] MEDS ORDERED: AMIO200T54 PO (16:47)
[2024-12-08] MEDS ORDERED: PANT40TA29 PO (16:47)
[2024-12-08] MEDS ORDERED: INSU100V6 SQ (16:47)
[2024-12-08] MEDS ORDERED: FIBE625T PO (16:47)
[2024-12-08] MEDS ORDERED: HOME MED LIST COMPLETE! XX SCH (16:50)
[2024-12-08] MEDS: FUROSEMIDE 40 MG TAB PO SCH (17:11)
[2024-12-08] MEDS: INSULIN LISPRO (NovoLOG) PER UNIT SC SCH ×2 (17:11→21:00)
[2024-12-08] MEDS: ACETAMINOPHEN 500 MG TAB PO SCH (17:12)
[2024-12-08] MEDS ORDERED: SODIUM CHLORIDE 0.9% INJ 10 ML SYR IV PRN (17:35)
[2024-12-08] MEDS ORDERED: HEPARIN LOCK FLUSH 100 UNITS/ML 3 ML SYRINGE IV PRN (17:35)
[2024-12-08] MEDS: FIBER-CON 625 MG TAB PO SCH (18:40)
[2024-12-08] MEDS: VANCOMYCIN 125MG CAPSULE PO SCH (18:41)
[2024-12-08] MEDS: SODIUM CHLORIDE 0.9% INJ 10 ML SYR IV SCH (18:41)
[2024-12-08] MEDS: HEPARIN LOCK FLUSH 100 UNITS/ML 3 ML SYRINGE IV SCH (18:41)
[2024-12-08 20:00] VITALS: BP 120/59; TEMP 97.8; O2SAT 99
[2024-12-08] MEDS ORDERED: PANTOPRAZOLE 40MG TAB PO SCH (21:00)
[2024-12-08] MEDS: SENNA 8.6 MG TAB PO SCH (21:00)
[2024-12-08] MEDS ORDERED: DOCUSATE SODIUM 100 MG CAPSULE PO SCH (21:00)
[2024-12-08] MEDS: APIXABAN 5 MG TAB PO SCH (21:13)
[2024-12-08] MEDS: POTASSIUM CHLORIDE 10MEQ SR TABLET PO SCH (21:13)
[2024-12-08] MEDS: AMIODARONE 200 MG TAB PO SCH (21:14)
[2024-12-08] MEDS: GABAPENTIN 300 MG CAP PO SCH (21:14)
[2024-12-08] MEDS: LINEZOLID 600 MG TABLET PO SCH (21:15)
[2024-12-08] MEDS: METOPROLOL TARTRATE 100 MG TAB PO SCH (21:16)
[2024-12-09 04:00] VITALS: BP 116/65; TEMP 97; O2SAT 98
[2024-12-09 06:15] LABS: BASO # 0.0 10^3/uL (0.0-0.2); BASO % 0.6 % (0.0-1.0); EOS # 0.2 10^3/uL (0.0-0.5); EOS % 4.5 % (0.0-3.0); LYMPH # 0.8 10^3/uL (1.5-5.0); LYMPH % 16.9 % (24.0-44.0); MONO # 0.4 10^3/uL (0.0-0.8); MONO % 7.5 % (2.0-8.0); NEUTROPHILS # 3.4 10^3/uL (1.5-8.5); NEUTROPHILS % 69.9 % (36.0-66.0); PLATELET COUNT, AUTOMATED 207 10^3/uL (150-450)
[2024-12-09 06:34] LABS: ALT/SGPT 12 U/L (7.0-40); AST/SGOT 22 U/L (<34); CALCIUM LEVEL 7.8 MG/DL (8.3-10.6); CARBON DIOXIDE LEVEL 27 MMOL/L (20-31); CHLORIDE LEVEL 106 MMOL/L (98-107); CREATININE FOR GFR 0.89 MG/DL (0.70-1.30); GLOMERULAR FILTRATION RATE > 90.0 (>49); MAGNESIUM LEVEL 1.8 MG/DL (1.8-2.4); POTASSIUM SERUM 4.0 MMOL/L (3.5-5.1); SODIUM LEVEL 140 MMOL/L (136-145)
[2024-12-09] MEDS: LOSARTAN 50 MG TABLET PO SCH (08:00)
[2024-12-09] MEDS: FERROUS GLUCONATE 324 MG TAB PO SCH (08:00)
[2024-12-09] MEDS: PANTOPRAZOLE 40MG TAB PO SCH (08:01)
[2024-12-09] MEDS: ATORVASTATIN 20 MG TAB PO SCH (08:01)
[2024-12-09] MEDS: VITAMIN D 1,000 INTERNATIONAL UNITS TABLET PO SCH (08:02)
[2024-12-09 12:00] VITALS: BP 118/56; TEMP 97.5; O2SAT 96
[2024-12-09 20:00] VITALS: BP 118/56; TEMP 97.6; O2SAT 97
[2024-12-09] MEDS: RAMELTEON 8 MG TAB PO PRN (20:52)
[2024-12-10 04:00] VITALS: BP 113/65; TEMP 97.8; O2SAT 96
[2024-12-10] MEDS: POTASSIUM CHLORIDE 10MEQ SR TABLET PO SCH (08:17)
[2024-12-10] MEDS: AMIODARONE 200 MG TAB PO SCH (08:20)
[2024-12-10 08:52] VITALS: BP 119/56; TEMP 97.2; O2SAT 94
[2024-12-10 11:49] VITALS: BP 100/54; TEMP 97.1; O2SAT 96
[2024-12-10 20:02] VITALS: BP 119/59; TEMP 97.4; O2SAT 99
[2024-12-11 05:39] VITALS: BP 104/56; TEMP 97.7; O2SAT 97
[2024-12-11 06:08] LABS: BASO # 0.0 10^3/uL (0.0-0.2); BASO % 0.4 % (0.0-1.0); EOS # 0.3 10^3/uL (0.0-0.5); EOS % 5.2 % (0.0-3.0); LYMPH # 0.7 10^3/uL (1.5-5.0); LYMPH % 13.2 % (24.0-44.0); MONO # 0.4 10^3/uL (0.0-0.8); MONO % 7.0 % (2.0-8.0); NEUTROPHILS # 3.8 10^3/uL (1.5-8.5); NEUTROPHILS % 73.8 % (36.0-66.0); PLATELET COUNT, AUTOMATED 200 10^3/uL (150-450)
[2024-12-11 06:32] LABS: CALCIUM LEVEL 7.7 MG/DL (8.3-10.6); CARBON DIOXIDE LEVEL 26 MMOL/L (20-31); CHLORIDE LEVEL 107 MMOL/L (98-107); CREATININE FOR GFR 0.91 MG/DL (0.70-1.30); GLOMERULAR FILTRATION RATE > 90.0 (>49); POTASSIUM SERUM 4.1 MMOL/L (3.5-5.1); SODIUM LEVEL 140 MMOL/L (136-145)
[2024-12-11 12:00] VITALS: BP 109/52; TEMP 97.6; O2SAT 97
[2024-12-11 20:00] VITALS: BP 118/57; TEMP 97.6; O2SAT 99
[2024-12-12 05:12] VITALS: BP 117/61; TEMP 97.9; O2SAT 98
[2024-12-12 12:00] VITALS: BP 106/53; TEMP 97.9; O2SAT 98
[2024-12-12 20:00] VITALS: BP 110/59; TEMP 97.3; O2SAT 96
[2024-12-13 04:00] VITALS: BP 129/62; TEMP 98.5; O2SAT 97
[2024-12-13 12:00] VITALS: BP 99/54; TEMP 98.3; O2SAT 95
[2024-12-13 20:00] VITALS: BP 123/83; TEMP 98.2; O2SAT 100
[2024-12-14 04:00] VITALS: BP 109/54; TEMP 98.1; O2SAT 99
[2024-12-14 12:00] VITALS: BP 116/59; TEMP 98; O2SAT 94
[2024-12-14] MEDS: NEOSPORIN TOP OINT 15 GM TOP STA (12:13)
[2024-12-14] MEDS ORDERED: FURO40TA2 PO (12:44)
[2024-12-14] MEDS ORDERED: AMIO200T54 PO (12:44)
[2024-12-14] MEDS ORDERED: POTA-136 PO (12:44)
[2024-12-14] MEDS ORDERED: LOPR1TAB7 PO (12:44)
[2024-12-14] MEDS ORDERED: VANC125C13 PO (12:44)
[2024-12-14] MEDS ORDERED: LOSA-528 PO (12:44)
[2024-12-14] MEDS ORDERED: INVO300T PO (12:44)
[2024-12-14] MEDS ORDERED: PANT40TA29 PO (12:44)
[2024-12-14] MEDS ORDERED: RISATAB3 PO (12:44)
[2024-12-14 20:00] VITALS: BP 111/56; TEMP 98.1; O2SAT 97
[2024-12-15 04:00] VITALS: BP 113/59; TEMP 98.6; O2SAT 99
[2024-12-15 07:57] VITALS: BP 128/71
[2024-12-15 12:00] VITALS: BP 114/56; TEMP 97.7; O2SAT 97
== END 2024-12-15 13:30 | disposition home health service (06) | DRG 560 ==
LOC: UNDOADMIN 13:17 → M ED INP 13:17 → M PM&R 14:30
PROVIDERS: ADMIT Physical Medicine & Rehabilitation; ATTEND Physical Medicine & Rehabilitation
DX: Z47.81 Encounter for orthopedic aftercare following surgical amputation (principal); I50.32 Chronic diastolic (congestive) heart failure; A04.72 Enterocolitis due to Clostridium difficile, not specified as recurrent; I48.91 Unspecified atrial fibrillation; E11.621 Type 2 diabetes mellitus with foot ulcer; E66.9 Obesity, unspecified; F32.A Depression, unspecified; G54.6 Phantom limb syndrome with pain; E11.51 Type 2 diabetes mellitus with diabetic peripheral angiopathy without gangrene; I11.0 Hypertensive heart disease with heart failure; Z79.01 Long term (current) use of anticoagulants; Z86.718 Personal history of other venous thrombosis and embolism; E87.6 Hypokalemia; Z79.899 Other long term (current) drug therapy; Z79.4 Long term (current) use of insulin; D50.9 Iron deficiency anemia, unspecified; Z89.512 Acquired absence of left leg below knee; L97.529 Non-pressure chronic ulcer of other part of left foot with unspecified severity